=== PATIENT | female | born 1960 | race Caucasian/White ===

== ENCOUNTER 2025-07-25 10:43 | Emergency (ER) | payer MEDICARE, BC, SELFPAY ==
[2025-07-25 10:46] VITALS: BP 160/89
--- NOTE | 2025-07-25 10:59 | ED.GENMED ---
History of Present Illness
General
Chief Complaint: Fall
Source: patient
Exam Limitations: none
Time Seen by Provider: 07/25/25 10:52
History of Present Illness
History of Present Illness:
See MDM
Past History
Past History
ED Past Medical History: None
ED Past Surgical History: None
Social History
Tobacco: Non-smoker
Alcohol: None
Phy Exam
Physical Exam
Physical Exam:
See MDM
Course
Orders/Labs/Results
Orders:
Orders
07/25/25 10:57
Wrist, Left 3 Views CR [CR Wrist - Left Min 3 Views] Urgent
Comment:
Reason For Exam: fall, distal radius pain
07/25/25 11:08
CT Head W/o Iv Contrast Urgent
Comment:
Reason For Exam: fall, left forehead injury, headache
07/25/25 11:22
CT Facial Bones W/o Iv Contras Urgent
Comment:
Reason For Exam: fall, left facial and nasal pain
Vital Signs
Initial and Last Documented VS:
Initial Vital Signs
Temp Pulse Resp BP Pulse Ox
98.7 F 96 18 160/89 97
07/25/25 10:46 07/25/25 10:46 07/25/25 10:46 07/25/25 10:46 07/25/25 10:46
Last Documented Vital Signs
Temp Pulse Resp BP Pulse Ox
98.7 F 96 18 160/89 97
07/25/25 10:46 07/25/25 10:46 07/25/25 10:46 07/25/25 10:46 07/25/25 11:01
Procedures
Laceration Closure
Upper Lip:
Status of Wound: clean
Size of Wound in cm: 1
Description of Wound Edges: sharp
Preparation: cleaned with soap & water
Anesthesia: 1% Lidocaine with epi
Revision/Debridement: routine- no revision
Wound exploration: explored to base- no FB
Type of Closure: single layer closure
Skin Closure Material: 4-0 vicryl
Number of sutures: 4
MDM/Problems Addressed
Differential Diagnosis Includes:
Note:
CHIEF COMPLAINT(S)
Fall resulting in facial and wrist injuries.
HISTORY OF PRESENT ILLNESS
A 65-year-old female patient presents following a fall onto concrete, resulting in facial and wrist injuries. Patient states she tripped over [employer] and fell forward. She fell forward on outstretched left hand and has bruising. She
denies numbness or tingling. Patient also landed on her face but denies tooth fracture. She states her tetanus is up-to-date
PHYSICAL EXAM
General: Alert, no acute distress.
Skin: Warm, dry.
Head: Small abrasions to lower lip and small laceration to the inside of the upper lip
Neck: Appears supple, trachea midline.
Eyes, Ears, Nose, Mouth, and Throat: Moist mucous membranes
Cardiovascular: No signs of cyanosis
Respiratory: Respirations are non-labored.
Abdomen: Non-distended
Musculoskeletal: Bruising and tenderness to distal left radius. Distal extremity otherwise neurovascularly intact
Neurological: No focal neurological deficit observed.
Psychiatric: Cooperative, appropriate mood and affect.
PLAN
- Order and perform an X-ray of the wrist to assess for fracture.
- Cleanse facial wound and prepare for suturing.
DIFFERENTIAL DIAGNOSIS
The differential diagnosis includes, in no particular order and is not limited to:
- Facial laceration
- Dental trauma
- Wrist fracture
- Soft tissue injury to wrist
- Facial swelling due to trauma
INDEPENDENT REVIEW OF LABS AND INTERPRETATION OF TESTS
- My independent interpretation of ordered X-ray pending.
MEDICATION RECONCILIATION
- The patient is currently taking Advil and a sinus medication.
PROCEDURES
- Plan to cleanse and suture facial laceration.
MEDICAL DECISION MAKING
- Number and Complexity of Problems Addressed: Chronic conditions affecting care include dental trauma and potential wrist fracture.
- Data:
- Category 1: X-ray ordered to assess wrist injury.
- Risk: Decision made against additional pain medication at this time, given current medication and patients preference.
SUMMARY OF ENCOUNTER
The patient, a 65-year-old female, presented after a fall on concrete with resulting injuries to the face and wrist. A wrist X-ray showed a non-displaced distal radius fracture. The patient was placed in a splint. Given the facial injuries, a CT
scan was ordered which showed no acute abnormalities; however, it incidentally revealed a meningioma. Absorbable stitches were placed in the lip laceration.
DISPOSITION
Discharge.
ASSESSMENT
Non-displaced distal radius fracture, facial laceration with meningioma (incidental finding on CT).
EMERGENCY TREATMENTS ADMINISTERED
Splinting of the wrist, absorbable stitches were placed in the lip.
PLAN
The patient is to follow up outpatient for further evaluation of the incidental meningioma and routine suture check.
INDEPENDENT REVIEW OF LABS AND INTERPRETATION OF TESTS
- My independent interpretation of the wrist X-ray is concerning for a distal radius fracture, which is non-displaced.
- My independent review of the CT scan shows no acute abnormalities, with an incidental finding of a meningioma.
PROCEDURES
Lip laceration repair with absorbable stitches.
PATIENT EDUCATION AND COUNSELING
The patient was counseled on the incidental finding of a meningioma and advised on routine follow-up for further evaluation. Education regarding splint care and signs of complications requiring immediate attention was provided.
FOLLOW-UP INSTRUCTIONS
Patient to follow up with her primary care physician and possibly neurology for further evaluation of the incidental meningioma and suture follow-up.
MEDICATION RECONCILIATION
The patient is currently taking ibuprofen (Advil) for pain relief, and no additional pain medication was prescribed.
MEDICAL DECISION MAKING
- Number and Complexity of Problems Addressed: Chronic conditions affecting care include dental trauma and potential wrist fracture. Differential diagnosis includes facial laceration, dental trauma, wrist fracture, soft tissue injury to the wrist,
and facial swelling due to trauma.
- Data:
- Category 1: Tests and documents include a wrist X-ray and CT scan.
- Category 2: My independent interpretation of the wrist X-ray suggests a non-displaced distal radius fracture. CT scan independently interpreted resulting in incidental finding of meningioma.
- Risk: Prescription pain medication was discussed but not provided due to patients current medication and preference.
DIAGNOSIS
- Facial laceration (S01.81XA)
- Possible wrist fracture (S62.90XA)
- Incidental meningioma (D33.1)
*Pulse Oximetry
SaO2: 97
Oxygen Mode of Delivery: Room air
Patient hypoxic: no
*Critical Care Note
Total Time (30-74mins, 75-104mins- exclusive of procedures): Not Applicable
ED Attending Note
-
Portions of this chart may have been created with voice recognition software.� Occasional wrong word or��sound alike� substitutions may have occurred due to the inherent limitations of voice recognition software.
Discharge Plan
Departure
Patient Disposition: Home (Routine Discharge)
Date of Disposition: 07/25/25
Time of Disposition: 12:34
Patient with high blood pressure during this ER visit?: Yes
Discharge Problem:
Distal radius fracture, left, Laceration of lip
Instructions: BLOOD PRESSURE
Referrals:
Davidson Odell MD [Active, Orthopedics]
Activity Restrictions/Additional Instructions:
I placed absorbable stitches. They will fall out on their own. Please follow-up with the orthopedist in regards to your wrist fracture.
Please return for any worsening symptoms.
You may return at any time if you have further concerns. Please talk to your doctor about the incidental meningioma.
Please follow up with your doctor at the first available appointment, preferably this week.
Thank you for choosing [facility].
Interventions
Interventions:
*Risk Screen - Suicide Last Done: 07/25/25 10:46
*General Assessment Last Done: 07/25/25 11:35
*Neglect/Abuse Screening Last Done: 07/25/25 10:46
*ED COVID-19 Vaccine History Last Done: 07/25/25 11:35
*ED Influenza Vaccine History Last Done: 07/25/25 11:35
ED-Musculoskeletal Assessment Last Done: 07/25/25 11:35
ED- Neurological Assessment Last Done: 07/25/25 11:35
ED-Skin Assessment Last Done: 07/25/25 11:35
Discharge Date and Time
Print Language: LIBYAN
== END 2025-07-25 12:41 | disposition home or self-care (01) ==
LOC: EMR 10:43
PROVIDERS: EMERGENCY PHYSICIAN Student in an Organized Health Care Education/Training Program; FAMILY PHYSICIAN Hospitalist
DX: S52.515A Nondisplaced fracture of left radial styloid process, initial encounter for closed fracture (principal); S01.511A Laceration without foreign body of lip, initial encounter; S60.222A Contusion of left hand, initial encounter; W01.0XXA Fall on same level from slipping, tripping and stumbling without subsequent striking against object, initial encounter
CPT/HCPCS: 99284; 12011; 29125; 70450; 70486; 73110